=== PATIENT | female | born 1980 | race Two or more races ===

== ENCOUNTER → 2024-08-03 | Outpatient (CLI) | payer OTHER, SELFPAY ==
--- NOTE | 2024-08-03 07:30 | XR_ITS ---
Examination: Breast ultrasound, unilateral, right complete Date and time of exam: August 03, 2024 0736 hours INDICATIONS: Mammogram August 03, 2024 10 mm focal asymmetry inner lower right breast Technique: Real-time cleary scale ultrasonographic imaging performed right breast including all 4 quadrants as well as nipple retroareolar and axillary region. Findings: 3:00 oval mass with partially indistinct margins 11 x 8 x 14 mm IMPRESSION: BI-RADS Category 0: Incomplete: Need additional imaging evaluation This patient should return for dedicated right breast sonography attention 3:00 position with the radiologist in attendance
--- NOTE | 2024-08-03 08:00 | XR_ITS ---
Examination: Diagnostic digital mammography, unilateral, right Computer aided detection 3-D breast Tomosynthesis, unilateral Date and time of exam: August 03, 2024 0721 hours INDICATIONS: Mammogram July 17, 2024 10 mm focal asymmetry inner lower right breast Technique: Nonmagnified MLO, CC views of the right breast have been obtained, reconstructed from 3-D Tomosynthesis images. R2 computer aided detection program utilized for evaluation of suspicious masses and/or abnormal calcifications. 3-D Tomosynthesis images obtained. Findings: Scattered areas of fibroglandular density 3:00 focal asymmetry does remain Impression: BI-RADS category 0: Incomplete: Need additional evaluation Recommend this patient return for dedicated right breast sonography 3:00 position with the radiologist in attendance
== END | disposition home or self-care (01) ==
LOC: CDIM 07:11
PROVIDERS: PCP Family Medicine; Referring Provider Nurse Practitioner Family; Visit Provider Nurse Practitioner Family
DX: R92.8 Other abnormal and inconclusive findings on diagnostic imaging of breast (principal)
CPT/HCPCS: 76641; 77061; 77065; G0279

== ENCOUNTER → 2024-08-17 | Outpatient (CLI) | payer OTHER, SELFPAY ==
--- NOTE | 2024-08-17 11:00 | XR_ITS ---
Examination: Breast ultrasound, unilateral, right complete Date and time of exam: August 17, 2024 1115 hours INDICATIONS: Mammogram August 03, 2024 3:00 nodule 11 x 14 mm Technique: Real-time cleary scale ultrasonographic imaging performed right breast including all 4 quadrants as well as nipple retroareolar and axillary region. Findings: 3:00 oval mass circumscribed 10 x 7 x 8 mm IMPRESSION: BI-RADS Category 3: Probably benign findings One additional 6 month right breast sonogram follow-up is needed to document stability of 3:00 nodule described above
== END | disposition home or self-care (01) ==
PROVIDERS: PCP Nurse Practitioner Family; Referring Provider Nurse Practitioner Family; Visit Provider Nurse Practitioner Family
DX: N63.15 Unspecified lump in the right breast, overlapping quadrants (principal)
CPT/HCPCS: 76641

== ENCOUNTER → 2024-09-17 | Outpatient (CLI) | payer OTHER, SELFPAY ==
[2024-09-17 13:23] LABS: Amphetamine/Methamp Scrn,U Negative (Negative); Barbiturate Screen,Urine Negative (Negative); Benzodiazepines Screen,Urine Negative (Negative); Benzoylecgonine Screen, Ur Negative (Negative); Fentanyl Screen,Urine Negative (Negative); Opiate Screen,Urine Negative (Negative); THC Screen,Urine Negative (Negative)
[2024-09-25 07:01] LABS: Cortisol,total,LC/MS/MS* 6.3 mcg/dL
== END | disposition home or self-care (01) ==
LOC: COPL 11:35
PROVIDERS: PCP Family Medicine; Referring Provider Nurse Practitioner Family; Visit Provider Nurse Practitioner Family
DX: F41.9 Anxiety disorder, unspecified (principal); Z79.899 Other long term (current) drug therapy
CPT/HCPCS: 36415; 80307; 82533

== ENCOUNTER → 2025-03-22 | Outpatient (CLI) | payer OTHER, SELFPAY ==
[2025-03-22 13:18] LABS: Basophils # (Auto) 0.0 Thou/mm3 (0.0-0.2); Basophils % (Auto) 1 % (0-2.5); Eosinophils # (Auto) 0.0 Thou/mm3 (0.0-0.5); Eosinophils % (Auto) 0 % (0-10); Hematocrit 35.4 % (36.0-46.0); Hemoglobin 11.2 g/dL (12.0-16.0); Immature Granulocytes Auto 0.03 Thou/mm3 (0.00-0.00); Immature Reticulocyte Fraction 10.1 % (3.0-15.9); Lymphocytes # (Auto) 3.5 Thou/mm3 (1.0-4.8); Lymphocytes % (Auto) 40 % (10-50); Mean Corpuscular HGB Conc 31.6 g/dl (31.0-37.0); Mean Corpuscular Hemoglobin 28.9 pg (25.0-35.0); Mean Corpuscular Volume 91 fL (80-100); Monocytes # (Auto) 0.6 Thou/mm3 (0.0-0.8); Monocytes % (Auto) 6 % (0-12); Neutrophils # (Auto) 4.6 Thou/mm3 (1.8-7.7); Neutrophils % (Auto) 53 % (37-80); Nucleated Red Blood Cell # 0.00 Thou/mm3 (0.00-0.00); Nucleated Red Blood Cell % 0 /100 WBC (0); Platelet Count 193 Thou/mm3 (140-440); RDW Standard Deviation 49.4 fL (36.4-46.3); Red Blood Count 3.88 Miln/mm3 (4.00-5.20); Reticulocyte % (Auto) 2.2 % (0.5-1.5); Reticulocyte Absolute Auto 86.5 Biln/L (25.0-75.0); Reticulocyte Hgb Content 30.2 pg (28.0-35.0); White Blood Count 8.7 Thou/mm3 (3.6-11.0)
[2025-03-22 13:35] LABS: Ferritin 131 ng/mL (7.3-270.7); Iron 47 mcg/dL (50-170); Percent Iron Saturation 24 % (20-55); T4 (Thyroxine) 4.3 mcg/dL (4.5-10.9); Total Iron Binding Capacity 193 mcg/dL (250-425); Unsaturated Iron Binding 146 (225-295)
[2025-03-22 13:38] LABS: Alanine Aminotransferase 28 U/L (10-49); Albumin, Serum 2.9 gm/dL (3.5-5.0); Albumin/Globulin Ratio 0.9 (1.2-2.2); Alkaline Phosphatase 106 U/L (46-116); Anion Gap 8 (7-16); Aspartate Amino Transferase 39 U/L (0-34); BUN/Creatinine Ratio 10 Ratio (12-20); Bilirubin,Total 0.6 mg/dL (0.3-1.2); Blood Urea Nitrogen < 5 mg/dL (9-23); Calcium 7.7 mg/dL (8.3-10.6); Calcium (Corrected) 8.6 mg/dL (8.5-10.1); Carbon Dioxide 26.3 mMol/L (20.0-31.0); Chloride 107 mMol/L (98-107); Creatinine (Component) 0.5 mg/dL (0.6-1.3); Globulin 3.2 gm/dL (2.3-3.5); Glucose 85 mg/dL (74-106); Osmolality,Calculated 277 (275-295); Potassium 4.1 mMol/L (3.4-5.1); Sodium 141 mMol/L (136-145); Thyroid Stimulating Hormone 2.31 uIU/mL (0.55-4.78); Total Protein 6.1 gm/dL (5.7-8.2); eGFR > 60 See Note
[2025-03-22 13:41] LABS: Folate 17.76 ng/mL (>5.38); Vitamin B12 432 pg/mL (211-911); Vitamin D 25 Hydroxy Total 30.4 ng/mL (7.3-40.2)
[2025-03-25 08:18] LABS: Misc Send Out* See Sep Rpt
[2025-03-28 06:32] LABS: Vitamin B1 (Thiamine)* 24 nmol/L (8-30)
[2025-03-29 06:20] LABS: Homocysteine* 9.5 umol/L (< OR = 11.0); Methylmalonic Acid, GC/MS/MS* 332 nmol/L (55-335)
[2025-04-01 10:59] LABS: Vitamin A (Retinol)* 25 mcg/dL (38-98)
== END | disposition home or self-care (01) ==
LOC: COPL 12:02
PROVIDERS: PCP Nurse Practitioner Family; Referring Provider Nurse Practitioner Family; Visit Provider Nurse Practitioner Family
DX: E56.9 Vitamin deficiency, unspecified (principal); D64.9 Anemia, unspecified; R42 Dizziness and giddiness
CPT/HCPCS: 36415; 80053; 82306; 82607; 82728; 82746; 83036; 83090; 83540; 83550; 83921; 84425; 84436; 84443; 84590; 85025; 85046

== ENCOUNTER → 2025-06-04 | Outpatient (CLI) | payer OTHER, SELFPAY ==
[2025-06-04 14:17] LABS: Misc Send Out* See Sep Rpt
[2025-06-04 14:43] LABS: Basophils # (Auto) 0.0 Thou/mm3 (0.0-0.2); Basophils % (Auto) 1 % (0-2.5); Eosinophils # (Auto) 0.0 Thou/mm3 (0.0-0.5); Eosinophils % (Auto) 0 % (0-10); Hematocrit 33.7 % (36.0-46.0); Hemoglobin 11.0 g/dL (12.0-16.0); Immature Granulocytes Auto 0.02 Thou/mm3 (0.00-0.00); Immature Reticulocyte Fraction 5.1 % (3.0-15.9); Lymphocytes # (Auto) 3.4 Thou/mm3 (1.0-4.8); Lymphocytes % (Auto) 42 % (10-50); Mean Corpuscular HGB Conc 32.6 g/dl (31.0-37.0); Mean Corpuscular Hemoglobin 28.9 pg (25.0-35.0); Mean Corpuscular Volume 89 fL (80-100); Monocytes # (Auto) 0.6 Thou/mm3 (0.0-0.8); Monocytes % (Auto) 8 % (0-12); Neutrophils # (Auto) 4.0 Thou/mm3 (1.8-7.7); Neutrophils % (Auto) 49 % (37-80); Nucleated Red Blood Cell # 0.00 Thou/mm3 (0.00-0.00); Nucleated Red Blood Cell % 0 /100 WBC (0); Platelet Count 196 Thou/mm3 (140-440); RDW Standard Deviation 44.8 fL (36.4-46.3); Red Blood Count 3.81 Miln/mm3 (4.00-5.20); Reticulocyte % (Auto) 1.2 % (0.5-1.5); Reticulocyte Absolute Auto 43.8 Biln/L (25.0-75.0); Reticulocyte Hgb Content 29.8 pg (28.0-35.0); White Blood Count 8.1 Thou/mm3 (3.6-11.0)
[2025-06-04 14:55] LABS: Glucose Estimated Average 77 mg/dL (80-131); Hemoglobin A1C 4.3 % Hgb (4.8-6.0)
[2025-06-04 15:03] LABS: Ferritin 134 ng/mL (7.3-270.7); Iron 47 mcg/dL (50-170); Percent Iron Saturation 25 % (20-55); Total Iron Binding Capacity 182 mcg/dL (250-425); Unsaturated Iron Binding 135 (225-295)
[2025-06-11 06:47] LABS: Vitamin A (Retinol)* 17 mcg/dL (38-98)
== END | disposition home or self-care (01) ==
LOC: COPL 14:03
PROVIDERS: PCP Nurse Practitioner Family; Referring Provider Nurse Practitioner Family; Visit Provider Nurse Practitioner Family
DX: D50.9 Iron deficiency anemia, unspecified (principal); E16.2 Hypoglycemia, unspecified
CPT/HCPCS: 36415; 82728; 83036; 83540; 83550; 84590; 85025; 85046

== ENCOUNTER → 2025-06-14 | Outpatient (CLI) | payer OTHER, SELFPAY ==
[2025-06-14 17:13] LABS: Amylase 76 U/L (30-118); Calcium 7.5 mg/dL (8.3-10.6); Lipase 16 U/L (12-53)
[2025-06-20 06:32] LABS: C-Peptide* 2.87 ng/mL (0.80-3.85); Insulin* 12.5 uIU/mL (< OR = 18.4)
== END | disposition home or self-care (01) ==
LOC: COPL 15:49
PROVIDERS: PCP Nurse Practitioner Family; Referring Provider Nurse Practitioner Family; Visit Provider Nurse Practitioner Family
DX: E16.1 Other hypoglycemia (principal); E16.9 Disorder of pancreatic internal secretion, unspecified; E83.51 Hypocalcemia
CPT/HCPCS: 36415; 82150; 82310; 83525; 83690; 84681